=== PATIENT | male | born 1965 | race Caucasian/White ===

== ENCOUNTER 2020-06-18 20:40 | Emergency (ER) | payer MEDICAID, OTHER ==
[~2020-06-18] VITALS: Ht 182.9 cm; Wt 90.0 kg
[2020-06-18 20:47] VITALS: BP 126/79
--- NOTE | 2020-06-18 20:53 | NUR ---
Pt arrives to [facility] from [facility] for right arm swelling and painful movement. Pt reports he is unable to move it. Pts distal pulse is strong and present but his skin around elbow and distal upper right arm is swollen and skin appears tight. Pt denies IV drug use. Pt was out of [facility] last week but his memory is not good and he does not recall what happedened prior to [facility]. Pt connected to monitors and call light in reach. Awaiting further orders.
[2020-06-18 21:16] LABS: BASOPHILS # (AUTO) 0.04 x10^3/uL (0-0.1); BASOPHILS % (AUTO) 0 % (0-1); EOSINOPHILS # (AUTO) 0.36 x10^3/uL (0-0.4); EOSINOPHILS % (AUTO) 4 % (1-7); LYMPHOCYTES # (AUTO) 2.32 x10^3/uL (1-3.4); LYMPHOCYTES % (AUTO) 25 % (22-44); MD NO; MEAN CORPUSCULAR HEMOGLOBIN 32.6 pg (27.5-34.5); MEAN CORPUSCULAR VOLUME 95.9 fL (81-97); MEAN PLATELET VOLUME 8.2 fL (7.4-10.4); MONOCYTES # (AUTO) 1.02 x10^3/uL (0.2-0.8); MONOCYTES % (AUTO) 11 % (2-9); NEUTROPHILS # (AUTO) 5.64 x10^3/uL (1.8-6.8); NEUTROPHILS % (AUTO) 60 % (42-75); PLATELET COUNT 143 x10^3/uL (130-400); RED BLOOD COUNT 4.56 x10^6/uL (4.38-5.82); RED CELL DISTRIBUTION WIDTH 13.8 % (9.4-14.8)
[2020-06-18 21:28] LABS: ALBUMIN 3.5 g/dL (3.4-5.0); ANION GAP 8 mmol/L (5-15); CALCIUM 8.6 mg/dL (8.5-10.1); CHLORIDE 105 mmol/L (98-107); CREATININE 1.46 mg/dL (0.7-1.3)
[2020-06-18 21:32] LABS: TROPONIN I < 0.015 ng/mL (0.000-0.045)
[2020-06-18] MEDS ORDERED: RIVAROXABAN 10 MG TABLET ONE (23:22)
[2020-06-18] MEDS ORDERED: RIVAROXABAN 15 MG TABLET PO ONE (23:30)
--- NOTE | 2020-06-18 23:55 | NUR ---
Posterior long arm applied to right arm. Patient/Caregiver given discharge instructions and they have confirmed that they understand the instructions. Patient ambulatory with steady gait.
== END 2020-06-18 23:58 | disposition home or self-care (01) ==
LOC: ED 22:16
DX: S52.021A Displaced fracture of olecranon process without intraarticular extension of right ulna, initial encounter for closed fracture (principal); I26.99 Other pulmonary embolism without acute cor pulmonale; R94.31 Abnormal electrocardiogram [ECG] [EKG]; F17.200 Nicotine dependence, unspecified, uncomplicated; X58.XXXA Exposure to other specified factors, initial encounter; Y93.89 Activity, other specified; Y92.89 Other specified places as the place of occurrence of the external cause; Y99.8 Other external cause status
CPT/HCPCS: 29105; 36415; 80048; 82040; 83880; 84484; 85025; 93005; 99285

== ENCOUNTER 2020-06-19 20:37 | Emergency (ER) | payer MEDICAID, OTHER ==
[~2020-06-19] VITALS: Ht 182.9 cm; Wt 90.0 kg
--- NOTE | 2020-06-19 20:38 | NUR ---
[facility] REPORTS FEELING DIORIENTED WHILE OUTSIDE ON BUSTOP, [facility], SEEN LAST WEEK FOR BLOOD CLOTS, CURRENTLY ON XARELTO. PT IS A&O X4 DENIES ANY FALLS OR LOC TODAY.
[2020-06-19 20:42] VITALS: BP 150/88
== END 2020-06-19 21:47 | disposition left against medical advice (07) ==
LOC: ED 20:59
DX: R41.82 Altered mental status, unspecified (principal); I74.9 Embolism and thrombosis of unspecified artery; Z53.21 Procedure and treatment not carried out due to patient leaving prior to being seen by health care provider